=== PATIENT | female | born 1965 | race Caucasian/White ===

== ENCOUNTER → 2023-11-15 | Outpatient (CLI) | payer BC ==
[~2023-11-15] MED LIST: HYDROXYCHLOROQ400 MG PO; SINGULAIR 110 MG/TAB PO; SYNTHROID0.075 MG/T PO; VICODIN 5/5001 UDTAB PO; WELLBUTRIN XL300 M1 PO; ZYRTEC 10MG10 MG PO
== END ==
LOC: MC.RAD 09:41
DX: C50.411 Malignant neoplasm of upper-outer quadrant of right female breast (principal); Z92.21 Personal history of antineoplastic chemotherapy
CPT/HCPCS: 32606; A4648